=== PATIENT | female | born 1945 | race Caucasian/White ===

== ENCOUNTER 2021-06-30 08:28 | Emergency (ER) | payer BC, MEDICARE ==
[~2021-06-30] VITALS: Ht 170.2 cm; Wt 83.9 kg
== END 2021-06-30 09:27 | disposition home or self-care (01) ==
LOC: FSED 09:18
DX: R50.9 Fever, unspecified (principal); J06.9 Acute upper respiratory infection, unspecified; B34.9 Viral infection, unspecified; R05.9 Cough, unspecified; I10 Essential (primary) hypertension; E78.5 Hyperlipidemia, unspecified
CPT/HCPCS: 83518; 87400; 99282